=== PATIENT | female | born 1955 | race Caucasian/White ===

== ENCOUNTER 2020-04-11 10:42 | Outpatient (CLI) | payer MEDICARE, OTHER, SELFPAY ==
--- NOTE | ~2020-04-11 | MM_ITS ---
EXAMINATION: MM screening [facility] BI w taco HISTORY: Screening TECHNIQUE: Craniocaudal and mediolateral oblique 3-D tomosynthesis images were obtained and synthetic 2-D images were generated. CAD analysis was submitted and interpreted. COMPARISON: Comparison to multiple prior studies sequentially, with oldest reviewed study dated 11/14. BREAST PARENCHYMAL COMPOSITION: There are scattered areas of fibroglandular density. FINDINGS: Stable bilateral breast asymmetries. There is no evidence of suspicious mass, calcification , or architectural distortion to suggest malignancy in either breast. There has been no suspicious in terval change. IMPRESSION: 1. No mammographic evidence of malignancy. 2. Recommend routine screening mammography in one year. BI-RADS Category 1: Negative Reviewed, dictated and finalized at location A. [employer]
== END 2020-04-11 10:43 | disposition home or self-care (01) ==
LOC: ANHIMG 10:47
PROVIDERS: PCP Family Medicine; Visit Provider Physician Assistant
DX: Z12.31 Encounter for screening mammogram for malignant neoplasm of breast (principal)
CPT/HCPCS: 77063; 77067

== ENCOUNTER 2021-11-07 09:49 | Outpatient (CLI) | payer MEDICARE, OTHER, SELFPAY ==
--- NOTE | ~2021-11-07 | MM_ITS ---
EXAMINATION: MM screening [facility] BI w taco HISTORY: Screening mammogram TECHNIQUE: Craniocaudal and mediolateral oblique 3-D tomosynthesis images were obtained and synthetic 2-D images were generated. CAD analysis was submitted and interpreted. COMPARISON: 04/11/2020, 11/22/2018 BREAST PARENCHYMAL COMPOSITION: There are scattered areas of fibroglandular density. FINDINGS: There is no suspicious mass, calcification, or architectural distortion to suggest malignan cy in either breast. There has been no suspicious interval change. IMPRESSION: 1. No mammographic evidence of malignancy. 2. Recommend routine screening mammography in one year. BI-RADS Category 1: Negative Reviewed, dictated and finalized at location A.
--- NOTE | ~2021-11-07 | DEXA_ITS ---
Bone Density Report Name: BOONE SIEGEL Age: 66 Sex: Female Ethnicity: White Date of : 1955 Indication: osteopenia; prior fracture; hysterectomy;postmenopausal Referring Provider: SUNNY YOUNG Study: Bone densitometry was performed. Exam Date: November 07, 2021 Accession number: [id number] Bone Density: Region BMD T-score Z-score Classification AP Spine(L1-L4) 0.866 -1.6 0.2 Osteopenia Femoral Neck (Left) 0.664 -1.7 -0.1 Osteopenia Total Hip (Left) 0.947 0.0 1.3 Normal Femoral Neck (Right) 0.687 -1.5 0.1 Osteopenia Total Hip (Right) 0.946 0.0 1.3 Normal Total Hip Mean 0.946 0.0 1.3 Normal World Health Organization criteria for BMD impression classify patients as: Normal (T-score at or above -1.0), Osteopenia (T-score between -1.0 and -2.5), or Osteoporosis (T-score at or below -2.5). 10-year Fracture Risk(1): Major Osteoporotic Fracture 13% Hip Fracture 1.4% Reported Risk Factors: [place] (), Neck BMD=0.664, BMI=46.1, previous fracture (1) FRAX(R) Version 3.08. Fracture probability calculated for an untreated patient. Fracture probability may be lower if the patient has received treatment. Previous Exams: Region Exam Age BMD T-score BMD Change BMD Change Date g/cm2 vs Baseline vs Previous AP Spine (L1-L4) 11/07/2021 66 0.866 -1.6 -0.020 (-2.3%) -0.020 (-2.3%) 11/15/2015 60 0.886 -1.5 Total Hip(Left) 11/07/2021 66 0.947 0.0 -0.026 (-2.7%) -0.026 (-2.7%) 11/15/2015 60 0.973 0.3 Total Hip(Right) 11/07/2021 66 0.946 0.0 -0.080 (-7.8%) -0.080 (-7.8%) 11/15/2015 60 1.025 0.7 *Denotes significance at 95% confidence level, LSC for AP Spine = 0.022 g/cm2, LSC for Total Hip = 0.027 g/cm2 Clinical Information Provided by Patient: Has had a low trauma fracture Has used the following medications: Vitamin D Has the following medical conditions: Hysterectomy Patient maximum height was 60 Menopause Age: 48 Does not regularly consume dairy products Onset of menses at age 12 Number of children 1 Impression: The patient has low bone mass, based on the Left Femoral Neck T-score. The patient has an estimated ten-year risk of hip fracture of 1.4% and an estimated ten-year risk of major fracture of 13%, based on the WHO FRAX algorithm. The patient has risk factors, including: previous fracture. The BMD for the Total Hip(Right) decreased, changing by -7.8% since the last DXA exam.
== END 2021-11-07 09:50 | disposition home or self-care (01) ==
PROVIDERS: PCP Family Medicine; Visit Provider Nurse Practitioner Gerontology
DX: Z12.31 Encounter for screening mammogram for malignant neoplasm of breast (principal); Z78.0 Asymptomatic menopausal state; M85.88 Other specified disorders of bone density and structure, other site; M85.852 Other specified disorders of bone density and structure, left thigh; M85.851 Other specified disorders of bone density and structure, right thigh
CPT/HCPCS: 77063; 77067; 77080

== ENCOUNTER 2022-05-27 19:19 | Emergency (ER) | payer MEDICARE, OTHER, SELFPAY ==
--- NOTE | ~2022-05-27 | XR_ITS ---
EXAM: XR hand LT min 3V DATE: 05/27/2022 19:39 HISTORY: fell, yesteray pain 1st and 5th digit on left hand . COMPARISON: None available. FINDINGS: Normal mineralization. No fracture or dislocation. No lytic or blastic lesion. Scattered m ild osteoarthritic changes. Status post trapezium resection. No erosion or periosteal change. Soft ti ssues within normal limits. IMPRESSION: No acute osseous finding in the left hand. Reviewed, dictated and finalized at location K. [employer]
[2022-05-27 19:26] VITALS: BP 151/63; PULSE 73; RESP 16; TEMP 36.6; O2SAT 97
--- NOTE | 2022-05-27 19:43 | ED.UPPEXIN ---
HPI - Extremity Injury (Upper) General Chief Complaint: Extremity Injury, Upper Stated Complaint: Fall Injury/Left Hand Injury Source: patient and RN notes reviewed History of Present Illness HPI narrative: 66 yr old female presents to urgent care with complaints of left pinky and left pain after falling yesterday. Patient states the ground was not level and missed her step, falling forward. Pt states she scraped her right knee and landed on both elbows and left hand. Denies any head injury or LOC. Denies any chest pain, shortness of breath, or vomiting. Patient did take an Advil minimal relief. Some parts of this dictation were generated by voice recognition software and may contain typographical and/or grammatical inaccuracies. Related Data Allergies Allergy/AdvReac Type Severity Reaction Status Date / Time clarithromycin Allergy Intermediate vomit Verified 04/11/21 08:48 estradiol Allergy Intermediate rash Verified 04/11/21 08:48 Penicillins Allergy Intermediate Vomiting Verified 04/11/21 08:48 Review of Systems Review of Systems: CONSTITUTIONAL: Denies fever, chills, or sweats. EYES: Denies visual changes, redness, or discharge. ENT: Denies otalgia and sore throat CARDIOVASCULAR: Denies chest pain, palpitations, or edema. RESPIRATORY: Denies cough or dyspnea. GASTROINTESTINAL: Denies abdominal pain, nausea, vomiting, or diarrhea. GENITOURINARY: Denies dysuria or hematuria. SKIN: Denies rash or itching. MUSCULOSKELETAL: Left pinky and thumb pain NEUROLOGIC: Denies headache, numbness, or weakness. [facility] Past Medical History Medical History Adult hypothyroidism Benign essential HTN Compulsive overeating NEY (generalized anxiety disorder) MDD (major depressive disorder), recurrent episode, moderate Prediabetes Surgical History Surgical History History of hysterectomy Social History Social History (Updated 04/11/21 @ 08:56 by Giovana Barnes) Social History: Smoking packs per day: 1 Smoking cigarettes per day: 20.0 Years smoked: 10 Smoking pack-years: 10.00 Smoking status: Former smoker Tobacco type: cigarettes Second hand tobacco smoke exposure: No Alcohol intake: never Substance use: never Substance use type: does not use Living arrangements: with family Occupation/Education: retired Additional occupation/education comments: self employed and disability Gender identity (if verbalized by the patient): Female Sexual Orientation (if Verbalized by the Patient): Straight or Heterosexual Comments At the time of my signature, I reviewed and agree with the nursing past medical, surgical, social, and family history. There is no relevant family history pertinent to the patient complaint. Exam Narrative: GENERAL: This is a well-nourished, well-developed patient, in no apparent distress. HEAD: normocephalic, atraumatic. EYES: PERRL. Sclera clear/white. Vision is grossly intact. EARS: External ears normal, auditory canals clear and without drainage, TMs normal without perforation. Hearing grossly intact. NOSE: External nose normal with no obvious nasal discharge, nares without redness, no rhinorrhea. THROAT: Mucous membranes moist, posterior pharynx clear. NECK: Neck supple, non-tender without lymphadenopathy, masses or thyromegaly. CARDIOVASCULAR: Regular rate and rhythm without murmurs, gallops, or rubs. RESPIRATORY: Clear to auscultation. Breath sounds equal bilaterally. No wheezes, rales, or rhonchi. GASTROINTESTINAL: Abdomen soft, non-tender, nondistended. Bowel sounds are active. No hepato-splenomegaly, or palpable masses. No guarding. SKIN: warm, intact with no suspicious lesions or rash, good texture and turgor. NEURO: awake, alert, and oriented to person, place and time. There were no obvious focal neuro EXTREMITIES: No clubbing, cyanosis, or edema. Near full ROM with a
== END 2022-05-27 19:54 | disposition home or self-care (01) ==
PROVIDERS: Emergency Provider Nurse Practitioner Family; PCP Family Medicine
DX: S69.82XA Other specified injuries of left wrist, hand and finger(s), initial encounter (principal); E03.9 Hypothyroidism, unspecified; I10 Essential (primary) hypertension; Z87.891 Personal history of nicotine dependence; W18.39XA Other fall on same level, initial encounter
CPT/HCPCS: 73130; 99213; G0463

== ENCOUNTER 2023-11-05 14:09 | Outpatient (CLI) | payer MEDICARE, OTHER, SELFPAY ==
--- NOTE | ~2023-11-05 | MM_ITS ---
EXAMINATION: MM screening [facility] BI w taco HISTORY: Screening TECHNIQUE: Craniocaudal and mediolateral oblique 3-D tomosynthesis images were obtained and synthetic 2-D images were generated. CAD analysis was submitted and interpreted. COMPARISON: Comparison to multiple prior studies sequentially, with oldest reviewed study dated 04/11. BREAST PARENCHYMAL COMPOSITION: Not dense: There are scattered areas of fibroglandular density. FINDINGS: There is no evidence of suspicious mass, calcification, or architectural distortion to sugg est malignancy in either breast. There has been no suspicious interval change. IMPRESSION: 1. No mammographic evidence of malignancy. 2. Recommend routine screening mammography in one year. BI-RADS Category 1: Negative Reviewed, dictated and finalized at location B.
== END 2023-11-05 14:10 | disposition home or self-care (01) ==
LOC: ANHIMG 14:10
PROVIDERS: PCP Family Medicine; Visit Provider Physician Assistant
DX: Z12.31 Encounter for screening mammogram for malignant neoplasm of breast (principal)
CPT/HCPCS: 77063; 77067